=== PATIENT | male | born 1980 | race Caucasian/White ===

== ENCOUNTER 2016-12-02 09:49 | Emergency (ER) | payer BC, OTHER ==
[2016-12-02] MEDS ORDERED: LORazepam INJ* 2 MG/ML 1 ML VIAL IV PUSH ONE (10:13)
[2016-12-02 10:27] LABS: Hematocrit 48 % (42-52); Hemoglobin 16.2 g/dl (14.0-18.0); Mean Corpuscular HGB Conc 34 g/dl (31-36); Mean Corpuscular Hemoglobin 30 pg (27-31); Mean Corpuscular Volume 88 fL (80-94); Mean Platelet Volume 8 um3 (7.4-10.4); Red Blood Count 5.46 10^6/ul (4.0-5.4); Red Cell Distribution Width 13 % (10.5-15); White Blood Count 5.7 10^3/ul (3.5-10.8)
[2016-12-02 10:44] LABS: Albumin 4.7 g/dL (3.2-5.2); BUN/Creatinine Ratio 12.4 (8-20); C Reactive Protein 1.39 mg/L (< 5.00); Calcium 9.6 mg/dL (8.6-10.3); EGFR African American 87.8 (>60); EGFR Non-African American 68.2 (>60); Globulin 2.9 g/dL (2-4); Potassium 3.5 mmol/L (3.5-5.0); Total Bilirubin 0.7 mg/dL (0.2-1.0); Total Protein 7.6 g/dL (6.4-8.9)
--- NOTE | 2016-12-02 10:59 | RAD ---
HISTORY: Shortness of breath COMPARISONS: None VIEWS: 4: Frontal dual-energy and lateral views of the chest. FINDINGS: CARDIOMEDIASTINAL SILHOUETTE: The cardiomediastinal silhouette is normal. ABHINAV: The abhinav are normal. PLEURA: The costophrenic angles are sharp. No pleural abnormalities are noted. LUNG PARENCHYMA: The lungs are clear. ABDOMEN: The upper abdomen is clear. There is no subphrenic gas. BONES AND SOFT TISSUES: No bone or soft tissue abnormalities are noted. OTHER: None. IMPRESSION: NO ACTIVE CARDIOPULMONARY DISEASE.
[2016-12-02 11:55] VITALS: BP 120/70
--- NOTE | 2016-12-02 18:44 | ED ---
Saul Polanco Angela, scribed for Rian Ray MD on 12/02/16 at 1015 . Shortness of Breath - HPI Summary HPI Summary: This pt is a 35 y/o male presenting to [facility] c/o SOB x1 week, progressively worsening. Pt notes that he was cleaning his cellar that had mold 2 weeks ago without any face mask. He notes he feels like passing out and hyperventilates from just ambulating. Pt reports associated night sweats, subjective fevers, extremity tingling. Pt's symptoms are alleviated by nothing and aggravated by nothing. He denies chest pain. Pt notes he had a sinus infection. His last cigarette was 1 week ago. - History of Current Complaint Chief Complaint: EDShortnessOfBreath Time Seen by Provider: 12/02/16 10:05 Hx Obtained From: Patient Onset/Duration: Lasting Weeks Aggrevating Factors: Nothing Alleviating Factors: Nothing Associated Signs & Symptoms: Fever, Diaphoresis - Allergy/Home Medications Allergies/Adverse Reactions: Allergies Allergy/AdvReac Type Severity Reaction Status Date / Time Amoxicillin Allergy Nausea And Verified 12/02/16 09:59 Vomiting Penicillins [PCN] Allergy Anaphylatic Verified 12/02/16 09:59 Shock PMH/Surg Hx/FS Hx/Imm Hx Endocrine/Hematology History: Denies: Hx Diabetes Cardiovascular History: Denies: Hx Hypertension, Hx Pacemaker/ICD Respiratory History: Denies: Hx Asthma Sensory History: Denies: Hx Hearing Aid Psychiatric History: Denies: Hx Panic Disorder - Surgical History Surgery Procedure, Year, and Place: eye injury from thorn/lspine fusion 14 yrs ago L5/S1,LEFT THUMB Infectious Disease History: Denies: Traveled Outside the [place] in Last 30 Days - Social History Alcohol Use: Occasionally Smoking Status (MU): Current Every Day Smoker Review of Systems Positive: Fever - subjective, Chills Negative: Chest Pain Positive: Shortness Of Breath Neurological: Other - Tingling extremities Positive: Weakness All Other Systems Reviewed And Are Negative: Yes Physical Exam - Summary Physical Exam Summary: VITAL SIGNS: Reviewed. GENERAL: Patient is a well-developed and nourished male. He is a little anxious. Patient is not in any acute respiratory distress. HEAD AND FACE: No signs of trauma. No ecchymosis, hematomas or skull depressions. No sinus tenderness. EYES: PERRLA, EOMI x 2, No injected conjunctiva, no nystagmus. EARS: Hearing grossly intact. Ear canals and tympanic membranes are within normal limits. MOUTH: Oropharynx within normal limits. NECK: Supple, trachea is midline, no adenopathy, no JVD, no carotid bruit, no c- spine tenderness, neck with full ROM. CHEST: Symmetric, no tenderness at palpation LUNGS: Clear to auscultation bilaterally. No wheezing or crackles. CVS: Regular rate and rhythm, S1 and S2 present, no murmurs or gallops appreciated. ABDOMEN: Soft, non-tender. No signs of distention. No rebound no guarding, and no masses palpated. Bowel sounds are normal. EXTREMITIES: FROM in all major joints, no edema, no cyanosis or clubbing. NEURO: Alert and oriented x 3. No acute neurological deficits. Speech is normal and follows commands. SKIN: Dry and warm Triage Information Reviewed: Yes Vital Signs On Initial Exam: Initial Vitals Temp Pulse Resp BP Pulse Ox 98.2 F 84 22 148/83 100 12/02/16 09:52 12/02/16 09:52 12/02/16 09:52 12/02/16 09:52 12/02/16 09:52 Vital Signs Reviewed: Yes Diagnostics - Vital Signs Vital Signs Temp Pulse Resp BP Pulse Ox 12/02/16 09:52 98.2 F 84 22 148/83 100 - Laboratory Lab Results: Lab Results 12/02/16 12/02/16 12/02/16 Range/Units 10:10 10:10 10:10 WBC 5.7 (3.5-10.8) 10^3/ul RBC 5.46 H (4.0-5.4) 10^6/ul Hgb 16.2 (14.0-18.0) g/dl Hct 48 (42-52) % MCV 88 (80-94) fL MCH 30 (27-31) pg MCHC 34 (31-36) g/dl RDW 13 (10.5-15) % Plt Count 207 (150-450) 10^3/ul MPV 8 (7.4-10.4) um3 Neut % (Auto) 60.1 (38-83) % Lymph % (Auto) 26.8 (25-47) % [place] % (Auto) 10.5 H (1-9) % Eos % (Auto) 2.1 (0-6) % Baso % (Auto) 0.5 (0-2) % Absolute Neuts (auto) 3.4 (1.5-7.7) 10^3/ul Absolute Lymphs (auto) 1.5 (1.0-4.8) 10^3/ul Absolute Monos (auto) 0.6 (0-0.8) 10^3/ul Absolute Eos (auto) 0.1 (0-0.6) 10^3/ul Absolute Basos (auto) 0 (0-0.2) 10^3/ul Absolute Nucleated RBC 0.01 10^3/ul Nucleated RBC % 0.1 D-Dimer, Quantitative (Less Than 230) ng/mL Sodium 137 (133-145) mmol/L Potassium 3.5 (3.5-5.0) mmol/L Chloride 105 (101-111) mmol/L Carbon Dioxide 22 (22-32) mmol/L Anion Gap 10 (2-11) mmol/L BUN 15 (6-24) mg/dL Creatinine 1.21 H (0.67-1.17) mg/dL Est GFR ( Amer) 87.8 (>60) Est GFR (Non-Af Amer) 68.2 (>60) BUN/Creatinine Ratio 12.4 (8-20) Glucose 105 H (70-100) mg/dL Lactic Acid 2.2 H* (0.5-2.0) mmol/L Calcium 9.6 (8.6-10.3) mg/dL Total Bilirubin 0.70 (0.2-1.0) mg/dL AST 23 (13-39) U/L ALT 30 (7-52) U/L Alkaline Phosphatase 51 (34-104) U/L Troponin I 0.00 (<0.04) ng/mL C-Reactive Protein 1.39 (< 5.00) mg/L B-Natriuretic Peptide ( - 100) pg/mL Total Protein 7.6 (6.4-8.9) g/dL Albumin 4.7 (3.2-5.2) g/dL Globulin 2.9 (2-4) g/dL Albumin/Globulin Ratio 1.6 (1-3) 08/18/17 08/18/17 Range/Units 10:10 10:10 WBC (3.5-10.8) 10^3/ul RBC (4.0-5.4) 10^6/ul Hgb (14.0-18.0) g/dl Hct (42-52) % MCV (80-94) fL MCH (27-31) pg MCHC (31-36) g/dl RDW (10.5-15) % Plt Count (150-450) 10^3/ul MPV (7.4-10.4) um3 Neut % (Auto) (38-83) % Lymph % (Auto) (25-47) % [place] % (Auto) (1-9) % Eos % (Auto) (0-6) % Baso % (Auto) (0-2) % Absolute Neuts (auto) (1.5-7.7) 10^3/ul Absolute Lymphs (auto) (1.0-4.8) 10^3/ul Absolute Monos (auto) (0-0.8) 10^3/ul Absolute Eos (auto) (0-0.6) 10^3/ul Absolute Basos (auto) (0-0.2) 10^3/ul Absolute Nucleated RBC 10^3/ul Nucleated RBC % D-Dimer, Quantitative < 200 (Less Than 230) ng/mL Sodium (133-145) mmol/L Potassium (3.5-5.0) mmol/L Chloride (101-111) mmol/L Carbon Dioxide (22-32) mmol/L Anion Gap (2-11) mmol/L BUN (6-24) mg/dL Creatinine (0.67-1.17) mg/dL Est GFR ( Amer) (>60) Est GFR (Non-Af Amer) (>60) BUN/Creatinine Ratio (8-20) Glucose (70-100) mg/dL Lactic Acid (0.5-2.0) mmol/L Calcium (8.6-10.3) mg/dL Total Bilirubin (0.2-1.0) mg/dL AST (13-39) U/L ALT (7-52) U/L Alkaline Phosphatase (34-104) U/L Troponin I (<0.04) ng/mL C-Reactive Protein (< 5.00) mg/L B-Natriuretic Peptide 20 ( - 100) pg/mL Total Protein (6.4-8.9) g/dL Albumin (3.2-5.2) g/dL Globulin (2-4) g/dL Albumin/Globulin Ratio (1-3) Result Diagrams: 12/02/16 10:10 12/02/16 10:10 Lab Statement: Any lab studies that have been ordered have been reviewed, and results considered in the medical decision making process. - Radiology Chest XR Xray Interpretation: No Acute Changes - IMPRESSION: No active cardiopulmonary disease. Radiology Interpretation Completed By: Radiologist - EKG 10:25 Cardiac Rate: NL - 80 bpm EKG Rhythm: Sinus Rhythm EKG Interpretation: Early repolarization Course/Dx - Course Course Of Treatment: This pt is a 35 y/o male presenting to [facility] c/o SOB x1 week, progressively worsening. Pt notes that he was cleaning his cellar that had mold 2 weeks ago without any face mask. He notes he feels like passing out and hyperventilates from just ambulating. Pt reports associated night sweats, subjective fevers, extremity tingling. Pt's symptoms are alleviated by nothing and aggravated by nothing. He denies chest pain. Pt notes he had a sinus infection. His last cigarette was 1 week ago. Test results without any significant abdnormalities, except creatinine of 1.2 and glucose of 105. Chest X -ray shows no acute cardiopulmonary disease and EKG shows sinus rhythm without any ST elevations. The patient wsa not hypoxic and is breathing 100% on air, however he feels short of breath, no other complaints. He reports that in the past he has had the same symptoms and was diagnosed with anxiety. In the ED course, pt was hydrated and given Ativan and all his symptoms have resolved. I have no suspicion for coronary syndrome as he has no chest pain and troponin is 0. Also, I have no suspicion for PE as the pt is not hypoxic, not tachycardic and has no comorbidities. Therefore, since his symptoms have resolved with Ativan, the pt might have had an axiety episode. The pt will be discharged and will follow up with a PCP. Pt is hemodynamically stable, and alert and oriented x3. I discussed all the findings and test results with the patient. Patient was instructed to return to the emergency room immediately if any of the symptoms return or worsens. Plan of care was discussed with the patient and understands and agrees. All questions were answered at patient satisfaction. There were no further complaints or concerns. - Diagnoses Differential Diagnosis/HQI/PQRI: Positive: Asthma, Bronchitis, CHF, Chest Wall Pain, [place], Pneumonia, Pulmonary Edema Provider Diagnoses: Anxiety Discharge - Discharge Plan Condition: Stable Disposition: HOME Prescriptions: hydrOXYzine HCL TAB* [Atarax 25 MG TAB*] 25 mg PO TID PRN #30 tab PRN Reason: Anxiety Patient Education Materials: Anxiety (ED) Referrals: Lan You MD [Primary Care Provider] - Additional Instructions: Your blood pressure was elevated during today's visit. Please follow up with your primary care physician. The documentation as recorded by the Saul gonzalez Angela accurately reflects the service I personally performed and the decisions made by , Rian Ray MD.
== END 2016-12-02 11:55 | disposition home or self-care (01) ==
LOC: ED 09:49
DX: R50.9 Fever, unspecified (principal); R53.1 Weakness; F41.9 Anxiety disorder, unspecified
CPT/HCPCS: 36415; 71020; 80053; 83605; 83880; 84484; 85025; 85379; 86140; 93005; 96374; 99284; J2060